=== PATIENT | female | born 1965 | race African-American/Black ===

== ENCOUNTER 2018-10-05 09:40 | Inpatient (IN) | payer OTHER ==
[2018-10-04 11:32] VITALS: BMI 24.2
[2018-10-05] MEDS ORDERED: MIDAZOLAM HCL 2 MG/2 ML SINGLE DOSE VIAL ONE ×2 (10:08→14:26)
[2018-10-05] MEDS ORDERED: KETAMINE HCL 200 MG/20 ML VIAL ONE (10:08)
[2018-10-05] MEDS ORDERED: THROMBIN (BOVINE) 20,000 UNIT VIAL TP ONE (10:10)
[2018-10-05] MEDS ORDERED: LIDOCAINE 1%-EPI 1:100,000 30 ML MDV IJ ONE (10:10)
[2018-10-05] MEDS ORDERED: GENTAMICIN SO4 80 MG/2 ML VIAL ONE (10:10)
[2018-10-05] MEDS ORDERED: DEXAMETHASONE SOD PHOSPHATE 4 MG/1 ML VIAL IVPUSH PRN (10:14)
[2018-10-05] MEDS ORDERED: PROMETHAZINE HCL 25 MG/1 ML VIAL IVPB PRN (10:14)
[2018-10-05] MEDS ORDERED: ONDANSETRON 4 MG/2 ML VIAL IVPUSH PRN ×2 (10:14→16:13)
[2018-10-05] MEDS ORDERED: LACTATED RINGERS SOLUTION 1,000 ML IV SCH (10:15)
[2018-10-05] MEDS ORDERED: HYDROmorphone *PCA* 10MG/50ML DISP.SYRIN PCA SCH (10:15)
[2018-10-05] MEDS ORDERED: CEFAZOLIN 2 GM in DEXTROSE 5%-WATER - 100 ML IVPB ONE (11:08)
--- NOTE | 2018-10-05 11:08 | HP ---
History & Physical Update - History History: No Change - Physical Physical: No Change - Assessment Assessment: No Change - Plan Plan: No Change
[2018-10-05] MEDS ORDERED: SUCCINYLCHOLINE CHLORIDE 200 MG/10 ML VIAL ONE (14:27)
[2018-10-05] MEDS ORDERED: PROPOFOL 20 ML ONE ×2 (14:29)
[2018-10-05] MEDS ORDERED: ROCURONIUM BROMIDE 50 MG/5 ML VIAL ONE (14:30)
[2018-10-05] MEDS ORDERED: DEXAMETHASONE SOD PHOSPHATE 4 MG/1 ML VIAL ONE (14:32)
[2018-10-05] MEDS ORDERED: LIDOCAINE 1%/EPI 1:100000 (20 ML MULTI DOSE VIAL) IJ ONE (14:40)
[2018-10-05] MEDS ORDERED: ceFAZolin SODIUM 1 GM VIAL IVPB ONE (14:40)
[2018-10-05] MEDS ORDERED: ceFAZolin SODIUM 1 GM VIAL ONE (14:46)
[2018-10-05] MEDS ORDERED: VANCOMYCIN 1,000 MG VIAL (RESTRICTED TO ID ONLY) ONE (14:46)
[2018-10-05] MEDS ORDERED: VANCOMYCIN 1 GM in NS (PRE-DOCKED) 1,000 MG/250 ML IVPB ONE (14:55)
[2018-10-05] MEDS ORDERED: GENTAMICIN SO4 80 MG/2 ML VIAL IVPB ONE (15:00)
[2018-10-05] MEDS ORDERED: THROMBIN (BOVINE) 5,000 UNIT VIAL TP ONE (15:00)
[2018-10-05] MEDS ORDERED: BACITRACIN 50,000 UNITS VIAL TP ONE (15:00)
[2018-10-05] MEDS ORDERED: NEOSTIGMINE METHYLSULFATE 0.5 MG/ML - 10 ML MDV ONE (15:34)
--- NOTE | 2018-10-05 16:08 | OP ---
Operative Note - Note: Operative Date: 10/05/18 Pre-Operative Diagnosis: Cervical Spondylotic Myelopathy Operation: 1. Interbody Cage. 2. C5 Caudal Hemicorpectomy with resection of Osteophytes and Posterior Longitudnal Ligament. 3. C6 Rostral Hemicorpectomy with resection of Osteophytes and Posterior Longitudnal ligament. 4. Anterior Instrumentation C5-C5 (technically challenging). 5. Microdissection. 6. C56 Arthrodesis. 7. Local autograft. 8. Deformity correction (catholic of lordosis) Findings: as dictated Implants: as dictated Post-Operative Diagnosis: Same as Pre-op Surgeon: Rodriguez Gomes Customer Relationship Specialist: Marcy Faulkner Anesthesiologist/MANAGER PSYCHOLOGY: Tati Baxter Anesthesia: General, Local Specimens Removed: as dictated Estimated Blood Loss (mls): 5 (ml) Drains & Tubes with Location: Subcutaneous MARY drain Fluid Volume Replaced (mls): 1 (L LR) Operative Report Dictated: Yes
[2018-10-05] MEDS ORDERED: diphenhydrAMINE HCL 25 MG CAPSULE (FP) PO PRN (16:13)
[2018-10-05] MEDS ORDERED: LACTATED RINGERS SOLUTION 1,000 ML/1,000 ML INFUS.BAG IV SCH (16:15)
[2018-10-05] MEDS ORDERED: POLYETHYLENE GLYCOL 3350 119 GM BTL PO PRN (16:25)
[2018-10-05] MEDS ORDERED: MENTHOL/PHENOL 1 EACH UD MM PRN (16:26)
[2018-10-05] MEDS ORDERED: RANITIDINE HCL 150 MG TABLET (FP) PO PRN (16:26)
[2018-10-05] MEDS ORDERED: HYDROmorphone *PCA* 10MG/50ML DISP.SYRIN PCA ONE (17:04)
[2018-10-05] MEDS ORDERED: ACETAMINOPHEN 1000 MG/100 ML VIAL (NON FORMULARY) IVPB PRN (17:06)
[2018-10-05] MEDS: HYDROmorphone *PCA* 10MG/50ML DISP.SYRIN PCA SCH (17:18)
[2018-10-05] MEDS: DOCUSATE SODIUM 100 MG CAPSULE (FP) PO SCH (21:49)
[2018-10-05] MEDS: CEFAZOLIN 1 GM/D5W 1 GM/50 ML BAG IVPB SCH (21:49)
[2018-10-06] MEDS: DOCUSATE SODIUM 100 MG CAPSULE (FP) PO SCH ×3 (06:03→22:03)
[2018-10-06 07:23] LABS: HEMOGLOBIN 11.7 GM/dL (10.7-15.3); MCH 29.9 pg (25.7-33.7); MCHC 33.5 g/dl (32.0-36.0); MEAN CELL VOLUME 89.2 fl (80-96); MEAN PLT VOLUME 9.5 fl (7.5-11.1); PLATELET COUNT 226 K/MM3 (134-434); RBC 3.92 M/mm3 (3.60-5.2); RDW 13.1 % (11.6-15.6); WHITE BLOOD COUNT 8.3 K/mm3 (4.0-10.0)
[2018-10-06 07:42] LABS: ANION GAP 6 MMOL/L (8-16); BLOOD UREA NITROGEN 14 mg/dL (7-18); CALCIUM 9.1 mg/dL (8.5-10.1); CHLORIDE 100 mmol/L (98-107); CO2 31 mmol/L (21-32); CREATININE 0.7 mg/dL (0.55-1.3); GLUCOSE,RANDOM 94 mg/dL (74-106); SODIUM 138 mmol/L (136-145)
[2018-10-06] MEDS: HEPARIN NA (PORCINE) 5,000 UNITS/ML 1ML VIAL SQ SCH ×3 (09:53→22:03)
[2018-10-06] MEDS: FOLIC ACID 1 MG TABLET (FP) PO SCH (09:53)
[2018-10-06] MEDS: CEFAZOLIN 1 GM/D5W 1 GM/50 ML BAG IVPB SCH ×3 (09:53→22:03)
[2018-10-06] MEDS: MULTIVITAMINS (DAILY MVI) TABLET (FP) PO SCH (09:53)
[2018-10-06] MEDS: FERROUS SO4 325 MG TABLET (FP) PO SCH (09:53)
[2018-10-06] MEDS: HYDROCHLOROTHIAZIDE 25 MG TABLET (FP) PO SCH (09:54)
--- NOTE | 2018-10-06 10:10 | PN ---
Progress Note (short form) - Note Progress Note: surgery POD #1 ACDF patient seen and examined at bedside. Patient states she experiencing some pain radiating over her shoulder blades L>R. She is tolerating clears but has not tried solid food yet. She denies any cp, SOB, N/ V fever or chills. Vital Signs Temp 97.9 F 10/06/18 09:00 Pulse 88 10/06/18 09:00 Resp 18 10/06/18 09:00 BP 164/88 10/06/18 09:00 Pulse Ox 100 10/05/18 17:45 Intake & Output 10/05/18 10/05/18 10/06/18 11:59 23:59 11:59 Intake Total 1800 900 Output Total 105 1020 Balance 1695 -120 Intake: IV 1600 700 LACTATED RINGERS SOLUTION 400 700 1,000 ml In 1,000 ml @ 100 mls/hr IV ASDIR LEILA Rx#:[id number] Oral 200 200 Output: Drainage 20 Neck 20 Urine 100 1000 Void 1000 Estimated Blood Loss 5 Other: # Unmeasured Voids Void 1 Bowel Movement No No CBC, BMP 10/06/18 06:20 10/06/18 06:20 PE: A&Ox3, NAD Unlabored resp on 2L NC Anterior dressing c/d/i with drain at right side in good position draining well (20cc post op) surrounding tissue intact with no erythema, edema or d/c. trachea midline. b/l UE moving without limitation, 5/5 bucket hooker strength. B.L LE compartments soft, supple and non-tender with +2 DP pulses Problem List - Problems (1) S/P cervical spinal fusion Assessment/Plan: Problem List - Problems (1) Cervical spondylosis Assessment/Plan: POD #1 ACDF with some post op pain appropriate to status. 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
[2018-10-06] MEDS: HYDROmorphone *PCA* 10MG/50ML DISP.SYRIN PCA SCH ×2 (10:16→17:16)
[2018-10-06] MEDS: LACTATED RINGERS SOLUTION 1,000 ML/1,000 ML INFUS.BAG IV SCH ×2 (10:17→17:16)
--- NOTE | 2018-10-06 10:48 | CONSULT ---
Consult - History of Present Illness History of Present Illness: 52 y/o female with h/o htn who was admitted for spinal surgery pt states had chest apin and scapular pain last night which has resolved - Past Medical History Cardio/Vascular: Yes: HTN. No: Hyperlipdemia, CO Pulmonary: No: COPD ...LMP Comment: 2yrs ago - Alcohol/Substance Use Hx Alcohol Use: Yes (social) - Smoking History Smoking history: Never smoked Have you smoked in the past 12 months: No Home Medications - Allergies Allergies/Adverse Reactions: Allergies Allergy/AdvReac Type Severity Reaction Status Date / Time No Known Drug Allergies Allergy Verified 10/05/18 10:29 shellfish derived AdvReac Mild Nausea Verified 10/05/18 10:29 - Home Medications Home Medications: Ambulatory Orders Gabapentin 300 mg PO BID 10/04/18 Hydrochlorothiazide 25 mg PO DAILY 10/04/18 Meloxicam 7.5 mg PO DAILY 10/04/18 Multivitamins [Tab-A-Vit -] 1 tab PO DAILY 10/04/18 Cyclobenzaprine HCl 10 mg PO DAILY 10/05/18 Physical Exam Vital Signs: Vital Signs Temperature 97.9 F 10/06/18 09:00 Pulse Rate 88 10/06/18 09:00 Respiratory Rate 18 10/06/18 09:00 Blood Pressure 164/88 10/06/18 09:00 O2 Sat by Pulse Oximetry (%) 100 10/05/18 17:45 Cardiovascular: Yes: Regular Rate and Rhythm Respiratory: Yes: Regular, CTA Bilaterally Gastrointestinal: Yes: Normal Bowel Sounds, Soft Edema: No Labs: CBC, BMP 10/06/18 06:20 10/06/18 06:20 Problem List - Problems (1) HTN (hypertension) Assessment/Plan: -monitor Vital Signs Period Temp Pulse Resp BP Sys/Espinal Pulse Ox Last 24 Hr 97.3 F-98.1 F 59-88 11-20 119-164/75-94 100-100 Code(s): I10 - ESSENTIAL (PRIMARY) HYPERTENSION (2) Chest pain Assessment/Plan: -may have been muscular due to position -CE/EKG/CXR Code(s): R07.9 - CHEST PAIN, UNSPECIFIED (3) S/P cervical spinal fusion Code(s): Z98.1 - ARTHRODESIS STATUS
--- NOTE | 2018-10-06 12:32 | EKG ---
Test Reason : Blood Pressure : / mmHG Vent. Rate : 078 BPM Atrial Rate : 078 BPM P-R Int : 200 ms QRS Dur : 088 ms QT Int : 362 ms P-R-T Axes : 071 025 042 degrees QTc Int : 412 ms NORMAL SINUS RHYTHM NORMAL ECG NO PREVIOUS ECGS AVAILABLE Confirmed by CHAYA RODRIGUEZ, VIANCA ([id number]) on 10/06/2018 12:31:59 PM Referred By: Rodriguez Gomes Confirmed By:VIANCA LARKIN MD
[2018-10-06] MEDS ORDERED: oxyCODONE HCL 5 MG TABLET PO PRN (15:09)
[2018-10-06] MEDS ORDERED: PT OWN MED DRAWER 7, Y5N ONE (15:38)
[2018-10-06] MEDS: BENZOCAINE/MENTH/CETYLPYRD CL 1 EACH LOZENGE MM PRN (23:55)
[2018-10-07] MEDS: HEPARIN NA (PORCINE) 5,000 UNITS/ML 1ML VIAL SQ SCH ×2 (06:01→15:13)
[2018-10-07] MEDS: DOCUSATE SODIUM 100 MG CAPSULE (FP) PO SCH ×2 (06:01→15:17)
[2018-10-07] MEDS: BENZOCAINE/MENTH/CETYLPYRD CL 1 EACH LOZENGE MM PRN (06:09)
--- NOTE | 2018-10-07 08:47 | PN ---
Progress Note (short form) - Note Progress Note: surgery POD #2 ACDF patient seen and examined at bedside. Patient has very little pain and states that the pain radiating over her shoulder blades L>R it much improved. She is tolerating a regular diet and she denies any cp, SOB, N/V fever or chills. Vital Signs Temp 98.2 F 10/07/18 06:43 Pulse 84 10/07/18 06:43 Resp 20 10/07/18 06:43 BP 133/88 10/07/18 06:43 Pulse Ox 100 10/05/18 17:45 Intake & Output 10/06/18 10/06/18 10/07/18 11:59 23:59 11:59 Intake Total 900 1080 Output Total 1020 40 5 Balance -120 1040 -5 Intake: IV 700 880 LACTATED RINGERS SOLUTION 700 880 1,000 ml In 1,000 ml @ 100 mls/hr IV ASDIR LEILA Rx#:[id number] IVPB 200 Oral 200 Output: Drainage 20 40 5 Neck 20 40 5 Urine 1000 Void 1000 Other: Voiding Method Toilet Toilet # Unmeasured Voids Void 3 Bowel Movement No PE: A&Ox3, NAD Unlabored resp on RA Anterior incision c/d/i with surrounding tissue intact, MARY drain removed with tip fully intact, surrounding tissue intact with no erythema, edema or d/c. trachea midline. b/l UE moving without limitation, 5/5 composite boat builder strength. B.L LE compartments soft, supple and non-tender with +2 DP pulses Problem List - Problems (1) S/P cervical spinal fusion Assessment/Plan: Problem List - Problems (1) Cervical spondylosis Assessment/Plan: POD #2 ACDF doing well. 1) OOB with PT 2) DVT prophylaxis 3) d/c planning for home today 4) C-Collar 23 hours/day 5) f/u with Dr Gomes as scheduled Code(s): Z98.1 - ARTHRODESIS STATUS
[2018-10-07] MEDS: CEFAZOLIN 1 GM/D5W 1 GM/50 ML BAG IVPB SCH ×2 (10:17→15:13)
[2018-10-07] MEDS: MULTIVITAMINS (DAILY MVI) TABLET (FP) PO SCH (10:18)
[2018-10-07] MEDS: FOLIC ACID 1 MG TABLET (FP) PO SCH (10:18)
[2018-10-07] MEDS: FERROUS SO4 325 MG TABLET (FP) PO SCH (10:18)
[2018-10-07] MEDS: HYDROCHLOROTHIAZIDE 25 MG TABLET (FP) PO SCH (10:19)
[2018-10-07] MEDS: oxyCODONE HCL 5 MG TABLET PO PRN ×2 (10:23→16:54)
--- NOTE | 2018-10-07 10:48 | DS ---
"Physical Examination Vital Signs: Vital Signs Temperature 98.2 F 10/07/18 06:43 Pulse Rate 84 10/07/18 06:43 Respiratory Rate 20 10/07/18 06:43 Blood Pressure 133/88 10/07/18 06:43 O2 Sat by Pulse Oximetry (%) 100 10/05/18 17:45 Findings/Remarks: Patient is 52 y/o female with past medical history of HTN. Patient is post-op ACDF. Constitutional: Yes: No Distress, Calm Eyes: Yes: Conjunctiva Clear HENT: Yes: Atraumatic Neck: Yes: Other (c-collar) Cardiovascular: Yes: Regular Rate and Rhythm Respiratory: Yes: Regular, CTA Bilaterally Gastrointestinal: Yes: Normal Bowel Sounds, Soft Musculoskeletal: Yes: WNL Extremities: Yes: WNL Edema: No Wound/Incision: Yes: Dressing Dry and Intact Neurological: Yes: Alert, Oriented Psychiatric: Yes: Alert, Oriented Labs: CBC, BMP 10/06/18 06:20 10/06/18 06:20 Discharge Summary Reason For Visit: CERVICAL SPONDYLOSIS Current Active Problems Chest pain (Acute) HTN (hypertension) (Acute) S/P cervical spinal fusion (Acute) Hospital Course: see progress notes Laboratory Tests 10/05/18 10/05/18 10/06/18 10:00 11:20 06:20 WBC 8.3 RBC 3.92 Hgb 11.7 Hct 35.0 MCV 89.2 MCH 29.9 MCHC 33.5 RDW 13.1 Plt Count 226 MPV 9.5 Sodium Potassium Chloride Carbon Dioxide Anion Gap BUN Creatinine Creat Clearance w eGFR Random Glucose Calcium Creatine Kinase Creatine Kinase Index CK-MB (CK-2) Troponin I Blood Type A POSITIVE A POSITIVE Antibody Screen Negative 10/06/18 10/06/18 06:20 11:15 WBC RBC Hgb Hct MCV MCH MCHC RDW Plt Count MPV Sodium 138 Potassium 4.0 Chloride 100 Carbon Dioxide 31 Anion Gap 6 L BUN 14 Creatinine 0.7 Creat Clearance w eGFR 87.53 Random Glucose 94 Calcium 9.1 Creatine Kinase 271 H Creatine Kinase Index 0.7 CK-MB (CK-2) 2.0 Troponin I < 0.02 Blood Type Antibody Screen Active Medications Generic Name Dose Route Start Last Admin Trade Name Freq PRN Reason Stop Dose Admin Acetaminophen 1,000 mg 10/05/18 17:06 10/06/18 23:53 Ofirmev Injection - IVPB 1,000 mg Q6H PRN Administration PAIN LEVEL 1 - 3 Benzocaine/Menthol 1 each 10/06/18 23:26 10/07/18 06:09 Cepacol Lozenge - MM 1 each PRN PRN Administration SORE THROAT Dexamethasone Sodium Phosphate 4 mg 10/05/18 10:14 Decadron Injection - IVPUSH ONCE PRN NAUSEA AND/OR VOMITING Diphenhydramine HCl 12.5 mg 10/05/18 10:14 Benadryl Injection - IVPUSH ONCE PRN FOR ITCHING Docusate Sodium 100 mg 10/05/18 22:00 10/07/18 06:01 Colace - PO 100 mg TID LEILA Administration Eucalyptus/Menthol/Phenol/Sorbitol 1 each 10/05/18 16:26 Cepastat Lozenge - MM Q4H PRN SORE THROAT Ferrous Sulfate 325 mg 10/06/18 10:00 10/07/18 10:18 Feosol - PO 325 mg DAILY LEILA Administration Folic Acid 1 mg 10/06/18 10:00 10/07/18 10:18 Folic Acid - PO 1 mg DAILY LEILA Administration Heparin Sodium (Porcine) 5,000 unit 10/06/18 10:00 10/07/18 06:01 Heparin - SQ 5,000 unit TID LEILA Administration Hydrochlorothiazide 25 mg 10/06/18 10:00 10/07/18 10:19 Hctz - PO 25 mg DAILY LEILA Administration Hydromorphone HCl 10 mg 10/05/18 16:47 10/06/18 17:16 Dilaudid Billing Clerk - WORKERS' COMPENSATION CLAIMS SUPERVISOR 10/12/18 10:14 Not Given WORKERS' COMPENSATION CLAIMS SUPERVISOR LEILA Protocol Cefazolin Sodium 1 gm in 50 mls @ 100 mls/hr 10/05/18 22:40 10/07/18 10:17 Ancef 1 Gm Premixed Ivpb - IVPB 100 mls/hr Q8H LEILA Administration Lactated Ringer's 1,000 ml in 1,000 mls @ 100 mls/hr 10/05/18 17:15 10/06/18 17:16 Lactated Ringers Solution IV Not Given ASDIR LEILA Multivitamins/Minerals/Vitamin C 1 tab 10/06/18 10:00 10/07/18 10:18 Tab-A-Vit - PO 1 tab DAILY LEILA Administration Ondansetron HCl 4 mg 10/05/18 16:13 Zofran Injection IVPUSH Q6H PRN NAUSEA Oxycodone HCl 5 mg 10/06/18 15:09 Roxicodone - PO Q4H PRN PAIN LEVEL 4-6 Oxycodone HCl 10 mg 10/06/18 15:09 10/07/18 10:23 Roxicodone - PO 10 mg Q4H PRN Administration PAIN LEVEL 7-10 Polyethylene Glycol 17 gm 10/05/18 16:25 Miralax (For Daily Use) - PO DAILY PRN CONSTIPATION Promethazine HCl 12.5 mg 10/05/18 10:14 Phenergan Injection - IVPB Q6H PRN NAUSEA AND/OR VOMITING Ranitidine HCl 150 mg 10/05/18 16:26 10/06/18 09:56 Zantac - PO 150 mg DAILY PRN Administration INDIGESTION Condition: Stable - Instructions Diet, Activity, Other Instructions: Post Operative Instructions Physical Activity Resume your normal everyday activity as tolerated. No heavy lifting or exercise until seen by your surgeon. You may walk unlimited amounts and climb stairs. You may resume driving the car when you feel safe and comfortable behind the wheel and you are no longer wearing your brace. Do not operate a vehicle while taking narcotic medication. Brace You had back surgery, wear brace whenever out of bed. May remove to sleep and shower. Wound Care Keep your incision clean, dry and covered at all times. Apply an occlusive dressing (Saran wrap or Tegaderm) when showering to avoid getting your incision wet. Do not submerge incision or apply ointments or creams. The rio will be removed in the office in 10-14 days post-op. Diet There are no dietary restrictions. Eat healthy, high-fiber foods. Drink 6-8 glasses of liquid each day. This will assist in keeping your bowels regular. Pain Management You may take Tylenol (Acetaminophen) for mild pain. You have been prescribed a narcotic pain medication for moderate to severe pain. Take as directed. Do not take additional Tylenol if your narcotic pain prescription contains Tylenol ( Acetaminophen). Do not drive, drink alcohol or operate heavy machinery while taking narcotic pain medications. Do not take any NSAIDS (Ibuprofen, Motrin, Aleve, Meloxicam, etc) for 3 months unless otherwise discussed with your surgeon. Call Dr Quick for any of the following: Severe pain not relieved by medication Fever of 101 or higher Excessive bleeding or drainage on dressing Inability to urinate Any chest pain or shortness of breath, seek Emergency Care. ISTOP: [phone] Call the office to confirm a post-operative appointment for 2-3 weeks post-op Rodriguez Gomes MD [facility] [address] [place] [address] [facility] COMIC ILLUSTRATOR: This report was requested by: Rodriguez Shepherd | Reference #: [id number] follow up with PMD in 1 week follow up with neurosurgery as scheduled continue with current med regimen as prescribed return to ER if severe pain, respiratory distress, chest pain This report was requested by: Aminata Washington | Reference #: [id number] (ISTOP) Referrals: Rodriguez Gomes MD, FAANS [Staff Physician] - Fannie Gallegos MD [Staff Physician] - Disposition: HOME - Home Medications Comprehensive Discharge Medication List: Ambulatory Orders Gabapentin 300 mg PO BID 10/04/18 Multivitamins [Multivit ([facility] Formulary)] 1 tab PO DAILY 10/04/18 Cyclobenzaprine HCl 10 mg PO DAILY 10/05/18 Docusate Sodium [Colace -] 100 mg PO TID #90 capsule 10/07/18 Hydrochlorothiazide [Hctz -] 25 mg PO DAILY tablet 10/07/18 Polyethylene Glycol 3350 [Miralax 119 gm Btl -] 17 gm PO DAILY PRN #1 bottle"
[2018-10-07 16:00] VITALS: BP 138/86; PULSE 104; TEMP 98.8
[2018-10-07] MEDS: HYDROmorphone *PCA* 10MG/50ML DISP.SYRIN PCA SCH (18:07)
[2018-10-07] MEDS: LACTATED RINGERS SOLUTION 1,000 ML/1,000 ML INFUS.BAG IV SCH (18:17)
--- NOTE | 2018-10-13 10:36 | SURG ---
Surgery Vocational Adviser Note Vocational Adviser: Marcy Faulkner PA-C (Suzy) Date of Service: 10/05/18 Diagnosis: Cervical Spondylotic Myelopathy Procedure: 1. Interbody Cage 2. C5 Caudal Hemicorpectomy with resection of Osteophytes and Posterior Longitudnal Ligament 3. C6 Rostral Hemicorpectomy with resection of Osteophytes and Posterior Longitudnal ligament 4. Anterior Instrumentation C5-C5 (technically challenging) 5. Microdissection 6. C56 Arthrodesis 7. Local autograft 8. Deformity correction (adventism of lordosis) I was present for the entirety of the operative procedure. For further detail, please refer to operative report. Visit type - Case Type Case Type: Scheduled - Emergency Emergency Visit: No - New patient This patient is new to me today: Yes Date on this admission: 10/13/18 - Critical Care Critical Care patient: No
--- NOTE | 2018-10-13 10:43 | PROC ---
Procedure Note Procedure: Insertion of guerra catheter in OR by PA for cervical case on 10/05. Guerra placed using regular sterile precautions. Immediate return of clear urine. Guerra removed at the end of case.
== END 2018-10-07 18:30 | disposition home or self-care (01) | DRG 321 ==
LOC: JSAMEDAYSX 09:40 → J8W 18:17
PROVIDERS: ADMIT Family Medicine; ATTEND Family Medicine
PROC: 0RB30ZZ Excision of Cervical Vertebral Disc, Open Approach (ICD-10-PCS; 2018-10-05)
PROC: B01BZZZ Fluoroscopy of Spinal Cord (ICD-10-PCS; 2018-10-05)
PROC: 4A11X4G Monitoring of Peripheral Nervous Electrical Activity, Intraoperative, External Approach (ICD-10-PCS; 2018-10-05)
PROC: 0RG1070 Fusion of Cervical Vertebral Joint with Autologous Tissue Substitute, Anterior Approach, Anterior Column, Open Approach (ICD-10-PCS; principal; 2018-10-05 11:00)
DX: M47.812 Spondylosis without myelopathy or radiculopathy, cervical region (principal); I10 Essential (primary) hypertension; R07.89 Other chest pain; M40.292 Other kyphosis, cervical region; M50.222 Other cervical disc displacement at C5-C6 level
CPT/HCPCS: 36415; 71045-TC-FY; 72125-TC; 76000-TC-FY; 80048; 82550; 82553; 84484; 85027; 86850; 86900; 86901; 93005; 93010; 94760; 97116-GP; 97162-GP; J0131; J1644